=== PATIENT | female | born 1960 | race Caucasian/White ===

== ENCOUNTER 2016-06-21 18:20 | Observation (INO) | payer BC, OTHER ==
[2016-06-21] VITALS (9 sets, daily range): BP systolic 110–168; BP diastolic 61–102; PULSE 72–112; RESP 18–20; TEMP 98.6; O2SAT 96–99
[~2016-06-21 18:20] MED LIST: ALPR0.5T99 PO; HYDR-3580 PO; LEXA5TAB PO; NORV5TAB PO
[2016-06-21] MEDS ORDERED: HYDR-3535 PO (18:35)
[2016-06-21] MEDS ORDERED: ALPR.5 PO (18:35)
[2016-06-21] MEDS ORDERED: LISI10TA3 PO (18:35)
--- NOTE | 2016-06-21 18:53 | PD ---
HPI Chief Complaint: Chest Pain Time Seen by Provider: 18:50 Travel History International Travel<30 days: No Contact w/Intl Traveler<30days: No Traveled to known affect area: No History of Present Illness HPI The patient was seen and examined in the presence of the nurse. This patient has a long history of heartburn. However the last couple of days she's beginning central chest discomfort that different and worse than her usual heartburn. She saw her primary physician yesterday for this and he was going to get a referral to cardiology. However today the pain came back and she got worried and came to the ER. She is currently pain-free. Symptoms severity is moderate. Duration 2 days. No alleviating factors. She has no diagnosed cardiac history of multiple risk factors. PFSH Past Medical History Anxiety: Yes Depression: Yes Cancer: Yes (SKIN CA X1 YR AGO) Cardiovascular Problems: Yes Diabetes: No Diminished Hearing: No Endocrine: No Gastrointestinal Disorders: Yes GERD: Yes Genitourinary: No Hiatal Hernia: Yes (GERD) Hypertension: Yes Immune Disorder: No Musculoskeletal: Yes Neurologic: No Psychiatric: Yes Reproductive: Yes Respiratory: Yes Sleep Apnea: No Thyroid Disease: No Ulcer: No Tetanus Vaccination: < 5 Years Influenza Vaccination: No ?: Not Past Surgical History Abdominal Surgery: No Cardiac Surgery: No Ear Surgery: No Eye Surgery: No Genitourinary Surgery: No Gynecologic Surgery: No Hysterectomy: Yes Oral Surgery: Yes (TOOTH EXTRACTION X 25 YEARS AGO) Pacemaker: No Thoracic Surgery: No Other Surgery: Yes (SKIN CA REMOVED FROM VARIOUS AREAS) Social History Alcohol Use: Yes (OCCASSIONAL) Tobacco Use: Yes (3/4 ppd) Substance Use: No Allergies-Medications (Allergen,Severity, Reaction): Coded Allergies: No Known Allergies (Verified , 05/13/15) Reported Meds & Prescriptions Reported Meds & Active Scripts Active Reported Xanax (Alprazolam) 0.5 Mg Tab 0.5 Mg PO BID PRN Lortab (Hydrocodone-Acetaminophen) 10-325 Mg Tab 1 Tab PO Q6H PRN Lisinopril 10 Mg Tab 10 Mg PO DAILY Review of Systems General / Constitutional: No: Fever Eyes: No: Visual changes HENT: No: Headaches Cardiovascular: Positive: Chest Pain or Discomfort Respiratory: No: Shortness of Breath Gastrointestinal: No: Abdominal Pain Genitourinary: No: Dysuria Musculoskeletal: No: Pain Skin: No Rash Neurologic: No: Weakness Psychiatric: No: Depression Endocrine: No: Polydipsia Hematologic/Lymphatic: No: Easy Bruising Physical Exam Narrative GENERAL: Well-nourished, well-developed patient in no apparent distress. SKIN: Warm and dry. HEAD: Atraumatic. Normocephalic. EYES: Pupils equal and round. No scleral icterus. No injection or drainage. ENT: No nasal bleeding or discharge. Mucous membranes pink and moist. NECK: Trachea midline. No JVD. CARDIOVASCULAR: Regular rate and rhythm. No murmur appreciated. RESPIRATORY: No accessory muscle use. Clear to auscultation. Breath sounds equal bilaterally. GASTROINTESTINAL: Abdomen soft, non-tender, nondistended. Hepatic and splenic margins not palpable. MUSCULOSKELETAL: No obvious deformities. No clubbing. No cyanosis. No edema. NEUROLOGICAL: Awake and alert. No obvious cranial nerve deficits. Motor grossly within normal limits. Normal speech. PSYCHIATRIC: Appropriate mood and affect; insight and judgment normal. Data Data Last Documented VS Vital Signs Date Time Temp Pulse Resp B/P Pulse Ox O2 Delivery O2 Flow Rate FiO2 06/21/16 18:49 20 98 06/21/16 18:25 98.6 111 168/102 Orders Electrocardiogram (06/21/16 18:51) Basic Metabolic Panel (Bmp) (06/21/16 18:51) Ckmb (Isoenzyme) Profile (06/21/16 18:51) Complete Blood Count With Diff (06/21/16 18:51) Prothrombin Time / Inr (Pt) (06/21/16 18:51) Act Partial Throm Time (Ptt) (06/21/16 18:51) Troponin I (06/21/16 18:51) Chest, Single Ap (06/21/16 18:51) Ecg Monitoring (06/21/16 18:51) Iv Access Insert/Monitor (06/21/16 18:51) Oximetry (06/21/16 18:51) Aspirin (Aspirin) (06/21/16 19:00) Sodium Chloride 0.9% Flush (Ns Flush) (06/21/16 19:00) MDM Medical Decision Making Medical Screen Exam Complete: Yes Emergency Medical Condition: Yes Medical Record Reviewed: Yes Differential Diagnosis Differential diagnosis includes [place], angina, pericarditis, pleurisy, GERD, anxiety. Narrative Course I have reviewed the patient's electronic medical record I've ordered a chest pain workup. Plan would be chest pain center observation and assuming the workup is negative. Discussed with Dr. Lind who will assist with disposition after workup complete Emery Rodgers MD Jun 21, 2016 18:53
[2016-06-21] MEDS ORDERED: SODIUM CHLORIDE 0.9% FLUSH 5 ML FLUSH IVF PRN ×3 (19:00→23:00)
[2016-06-21] MEDS ORDERED: ASPIRIN 325 MG TAB PO ONE (19:00)
[2016-06-21 19:05] LABS: AUTOMATED NEUTROPHIL # 6.7 TH/MM3 (1.8-7.7); BASOPHIL # 0.1 TH/MM3 (0-0.2); BASOPHIL % 1.2 % (0.0-2.0); EOSINOPHIL # 0.2 TH/MM3 (0-0.4); EOSINOPHIL % 2.2 % (0.0-4.0); HEMATOCRIT 44.8 % (35.0-46.0); HEMO FLAGS DIFF FINAL; LYMPH % 20.9 % (9.0-44.0); MEAN CELL VOLUME 93.1 FL (80.0-100.0); MEAN CORPUSCULAR HEMOGLOBIN 32.7 PG (27.0-34.0); MEAN CORPUSCULAR HGB CONC 35.1 % (32.0-36.0); NEUT % 68.7 % (16.0-70.0); PLATELET COUNT 321 TH/MM3 (150-450); RED BLOOD COUNT 4.81 MIL/MM3 (4.00-5.30); RED CELL DISTRIBUTION WIDTH 12.4 % (11.6-17.2); WHITE BLOOD COUNT 9.7 TH/MM3 (4.0-11.0)
--- NOTE | 2016-06-21 19:10 | PD ---
Physical Exam Date Seen by Provider: Jun 21, 2016 Time Seen by Provider: 19:09 Narrative Accepted in transfer of care from Dr. Rodgers GENERAL: Well-developed well-nourished female in apparent discomfort no respiratory distress SKIN: Warm and dry. right sided posterior subscapular back/wall superficial abrasion HEAD: Normocephalic. EYES: No scleral icterus. No injection or drainage. NECK: Supple, trachea midline. No JVD or lymphadenopathy. CARDIOVASCULAR: Regular rate and rhythm without murmurs, gallops, or rubs. RESPIRATORY: Breath sounds equal bilaterally. No accessory muscle use. GASTROINTESTINAL: Abdomen soft, non-tender, nondistended. MUSCULOSKELETAL: No cyanosis, or edema. Bilateral radial and dorsalis pedis pulses 2+ to palpation BACK: Nontender without obvious deformity. No CVA tenderness. Data Data Last Documented VS Vital Signs Date Time Temp Pulse Resp B/P Pulse Ox O2 Delivery O2 Flow Rate FiO2 06/21/16 20:05 105 18 110/70 98 Room Air 06/21/16 18:25 98.6 Orders Electrocardiogram (06/21/16 18:51) Basic Metabolic Panel (Bmp) (06/21/16 18:51) Ckmb (Isoenzyme) Profile (06/21/16 18:51) Complete Blood Count With Diff (06/21/16 18:51) Prothrombin Time / Inr (Pt) (06/21/16 18:51) Act Partial Throm Time (Ptt) (06/21/16 18:51) Troponin I (06/21/16 18:51) Chest, Single Ap (06/21/16 18:51) Ecg Monitoring (06/21/16 18:51) Iv Access Insert/Monitor (06/21/16 18:51) Oximetry (06/21/16 18:51) Aspirin (Aspirin) (06/21/16 19:00) Sodium Chloride 0.9% Flush (Ns Flush) (06/21/16 19:00) Sodium Chlorid 0.9% 500 Ml Inj (Ns 500 M (06/21/16 19:15) Sodium Chlor 0.9% 1000 Ml Inj (Ns 1000 M (06/21/16 19:15) Nitroglycerin Sl (Nitrostat Sl) (06/21/16 19:15) Pantoprazole Inj (Protonix Inj) (06/21/16 19:15) Potassium Chloride (Kcl) (06/21/16 19:15) Morphine Inj (Morphine Inj) (06/21/16 19:45) Ondansetron Inj (Zofran Inj) (06/21/16 19:45) Ketorolac Inj (Toradol Inj) (06/21/16 19:45) D-Dimer (06/21/16 18:48) Ct Pulmonary Angiogram (06/21/16 ) Iohexol 350 Inj (Omnipaque 350 Inj) (06/21/16 21:17) Troponin I (06/21/16 21:32) Ckmb (Isoenzyme) Profile (06/21/16 21:32) Electrocardiogram (06/21/16 ) Labs Laboratory Tests Test 06/21/16 18:48 White Blood Count 9.7 TH/MM3 Red Blood Count 4.81 MIL/MM3 Hemoglobin 15.8 GM/DL Hematocrit 44.8 % Mean Corpuscular Volume 93.1 FL Mean Corpuscular Hemoglobin 32.7 PG Mean Corpuscular Hemoglobin 35.1 % Concent Red Cell Distribution Width 12.4 % Platelet Count 321 TH/MM3 Mean Platelet Volume 8.3 FL Neutrophils (%) (Auto) 68.7 % Lymphocytes (%) (Auto) 20.9 % Monocytes (%) (Auto) 7.0 % Eosinophils (%) (Auto) 2.2 % Basophils (%) (Auto) 1.2 % Neutrophils # (Auto) 6.7 TH/MM3 Lymphocytes # (Auto) 2.0 TH/MM3 Monocytes # (Auto) 0.7 TH/MM3 Eosinophils # (Auto) 0.2 TH/MM3 Basophils # (Auto) 0.1 TH/MM3 CBC Comment DIFF FINAL Differential Comment Prothrombin Time 10.2 SEC Prothromb Time International 0.9 RATIO Ratio Activated Partial 30.0 SEC Thromboplast Time D-Dimer Quantitative (PE/DVT) 0.56 MG/L FEU Sodium Level 137 MEQ/L Potassium Level 3.1 MEQ/L Chloride Level 93 MEQ/L Carbon Dioxide Level 30.5 MEQ/L Anion Gap 14 MEQ/L Blood Urea Nitrogen 13 MG/DL Creatinine 0.54 MG/DL Estimat Glomerular Filtration 118 ML/MIN Rate Random Glucose 67 MG/DL Calcium Level 9.4 MG/DL Total Creatine Kinase 31 U/L Troponin I LESS THAN 0.02 NG/ML [facility] Medical Record Reviewed: Yes Supervised Visit with CLARENCE: No Interpretation(s) EKG: Sinus tachycardia rate 110 QS septally in V1 V2 no acute ST elevation or injury pattern noted CK: 31, not elevated; troponin I less than 0.02, not elevated CT pulmonary angiogram: CONCLUSION: No acute disease. No pulmonary embolus is seen. Alan Dooley MD on June 21, 2016 at 22:05 Board Certified Radiologist. This report was verified electronically. CBC & BMP Diagram 06/21/16 18:48 Last Impressions Chest X-Ray 06/21/16 1851 Signed Impressions: Service Date/Time: Tuesday, June 21, 2016 19:09 - CONCLUSION: No acute disease. Alan Dooley MD Differential Diagnosis Please refer to Dr. Rodgers's dictation Narrative Course Accepted in transfer of care from Dr. Rodgers for follow-up of pending labs and patient disposition with plan to admit for observation to chest pain center; cardiac risk: female, age 55, HTN, and tobacco use @1920 p.m. patient complains of 8/10 chest pain; supple nitroglycerin ordered; patient is artery received aspirin; patient identified to have hypokalemia and oral potassium replacement administered At 7:48 PM patient identified to have not elevated cardiac enzymes of 31 CK and less than 0.02 for troponin I and chemistries are also noted to have hypokalemia 3.1 this was addressed with oral replacement of potassium but also low blood sugar of 67 patient given orange juice. Patient also reportedly had initially improvement of chest pain after one sublingual nitroglycerin 7/10 decreased to 5/10 however after subsequent nitroglycerin paste was increased again to 8/10 in intensity. Patient administered morphine sulfate 2 mg IV along with Zofran 4 mg IV and Toradol 30 mg IV. D-dimer is elevated --patient remians tachycardic and discomfort is worsened by deep inspiration--proceed with CT pulmonary angiogram Post CT VS have normalized; current pain minimal; "I feel much better" Physician Communication Physician Communication call placed to [facility] service for [employer] HHPO obs Diagnosis Primary Impression: Chest pain Additional Impression: Hypokalemia Admitting Information Admitting Physician Requests: Observation Samantha Lind MD Jun 21, 2016 19:10
[2016-06-21 19:11] LABS: CHLORIDE 93 MEQ/L (98-107); POTASSIUM 3.1 MEQ/L (3.5-5.1); SODIUM (NA) 137 MEQ/L (136-145)
[2016-06-21 19:14] LABS: ANION GAP 14 MEQ/L (5-15); BICARBONATE 30.5 MEQ/L (21.0-32.0); BLOOD UREA NITROGEN 13 MG/DL (7-18)
[2016-06-21] MEDS ORDERED: SODIUM CHLORID 0.9% 500 ML INJ 500 ML IV ONE (19:15)
[2016-06-21] MEDS ORDERED: POTASSIUM CHLORIDE 20 MEQ CONTROLLED RELEASE TAB PO ONE (19:15)
[2016-06-21] MEDS ORDERED: PANTOPRAZOLE SODIUM 40 MG VIAL IV PUSH ONE (19:15)
[2016-06-21 19:17] LABS: GLOMERULAR FILTRATION RATE 118 ML/MIN (>89); INTERNATIONAL NORMALIZED RATIO 0.9 RATIO; PROTHROMBIN TIME - PATIENT 10.2 SEC (9.8-11.6)
[2016-06-21] MEDS: NITROGLYCERIN 0.4 MG SL 25 TABS/BTL SL PRN ×3 (19:22→19:33)
[2016-06-21] MEDS: SODIUM CHLOR 0.9% 1000 ML INJ 1,000 ML IV SCH (19:22)
[2016-06-21 19:24] LABS: CREATINE KINASE 31 U/L (26-192)
[2016-06-21] MEDS ORDERED: MORPHINE SULFATE 4 MG/ML INJ IV PUSH ONE (19:45)
[2016-06-21] MEDS ORDERED: KETOROLAC TROMETHAMINE 30 MG/ML (IVP) VIAL IV PUSH ONE (19:45)
[2016-06-21] MEDS ORDERED: ONDANSETRON HCL 4 MG/2 ML VIAL IV PUSH ONE (19:45)
--- NOTE | 2016-06-21 19:58 | RADHPO ---
EXAM DATE/TIME: 06/21/2016 19:09 [facility] COMPARISON: No previous studies available for comparison. INDICATIONS : Chest pain. MEDICAL HISTORY : None. SURGICAL HISTORY : None. ENCOUNTER: Initial ACUITY: 1 day PAIN SCORE: 8/10 LOCATION: Bilateral chest FINDINGS: A single view of the chest demonstrates the lungs to be symmetrically aerated without evidence of mas s, infiltrate or effusion. The cardiomediastinal contours are unremarkable. Osseous structures are intact. CONCLUSION: No acute disease. Alan Dooley MD on June 21, 2016 at 19:56 Board Certified Radiologist. This report was verified electronically.
[2016-06-21] MEDS ORDERED: ZOFR4TAB3 SL (20:29)
[2016-06-21] MEDS ORDERED: HYDR-3533 PO (20:29)
[2016-06-21] MEDS ORDERED: IOHEXOL 350 MG/ML 10 ML VIAL (for RAD DIAG) IV ONE (21:17)
--- NOTE | 2016-06-21 22:08 | RADHPO ---
EXAM DATE/TIME: 06/21/2016 20:59 [facility] COMPARISON: No previous studies available for comparison. INDICATIONS : Substernal chest pain. IV CONTRAST: 74 cc Omnipaque 350 (iohexol) IV RADIATION DOSE: 13.58 CTDIvol (mGy) MEDICAL HISTORY : Hypertension. Gastroesophageal reflux disease. Carcinoma, squamous cell. SURGICAL HISTORY : None. ENCOUNTER: Initial ACUITY: 2 days PAIN SCALE: 7/10 LOCATION: chest TECHNIQUE: Volumetric scanning of the chest was performed using a pulmonary embolism protocol MIP images were re constructed. Using automated exposure control and adjustment of the mA and/or kV according to patien t size, radiation dose was kept as low as reasonably achievable to obtain optimal diagnostic quality images. FINDINGS: PULMONARY ARTERIES: No filling defects are seen in the pulmonary arteries through the segmental level. LUNGS: There is no consolidation or pneumothorax . No concerning pulmonary nodule is visualized. PLEURAE: There is no pleural thickening or pleural effusion. MEDIASTINUM: There is good visualization of the great vessels of the middle mediastinum. No evidence of mediastin al or hilar adenopathy/mass. MUSCULOSKELETAL: Within normal limits for patient age. MISCELLANEOUS: The visualized upper abdominal organs demonstrate no acute abnormality. CONCLUSION: No acute disease. No pulmonary embolus is seen. Alan Dooley MD on June 21, 2016 at 22:05 Board Certified Radiologist. This report was verified electronically.
[2016-06-22 00:03] VITALS: BP 116/89; PULSE 96; RESP 18; TEMP 98; O2SAT 98
[2016-06-22] MEDS ORDERED: TEMAZEPAM 7.5 MG CAP PO ONE (01:15)
[2016-06-22 04:16] VITALS: BP 138/88; PULSE 84; RESP 14; TEMP 97.8; O2SAT 95
[2016-06-22] MEDS: SODIUM CHLOR 0.9% 1000 ML INJ 1,000 ML IV SCH (05:15)
[2016-06-22] MEDS ORDERED: ALPRAZolam 0.5 MG TAB PO PRN (05:45)
[2016-06-22 07:00] VITALS: PULSE 68
--- NOTE | 2016-06-22 07:21 | HHI.HP ---
[facility] Service [facility] Primary Care Physician Ab Montgomery DO Admission Diagnosis chest pain Diagnoses: (1) Chest pain Diagnosis: Principal (2) Hypokalemia Diagnosis: Principal (3) Hypertension Diagnosis: Secondary (4) Tobacco use Chief Complaint: Chest pain Travel History International Travel<30 Days: No Contact w/Intl Traveler <30 Da: No Traveled to Known Affected Are: No History of Present Illness 55-year-old female with known history of hypertension, gastroesophageal reflux, tobacco use who presented to hospital because of chest discomfort. Patient states that she is had epigastric discomfort for the last couple months. She has been using Pepcid and baking soda/water with relief usually. However last week and progressively getting worse. She went to her primary medical doctor who did laboratory studies and EKGs. She was told by her primary medical doctor that she had some abnormal changes in her EKG. They' re trying to set up outpatient cardiology evaluation. However the patient states that the pain progressively got worse and she started developing dyspnea. She came to emergency department for evaluation. Patient states that the pain is located in the epigastric region and mid part of her chest. There is no radiation to neck, back, shoulder, arm. She states that the pain is worse whenever she takes a deep breath. It is nonpalpable. She has had nausea without vomiting. She denies any diaphoresis. Patient states that she does have chronic gastroesophageal reflux. She has had endoscopies done 2 years ago , however she never followed up. She indicates that she was notified there was nothing wrong with her stomach. At the present time patient only is increasing pain whenever she takes a deep breath. Patient was recommended observation chest pain center for further evaluation. Review of Systems Constitutional: DENIES: Diaphoretic episodes, Fatigue, Fever, Weight gain, Weight loss, Chills, Dizziness, Change in appetite, Night Sweats Eyes: DENIES: Blurred vision, Diplopia, Eye inflammation, Eye pain, Vision loss , Double Vision Ears, nose, mouth, throat: DENIES: Vertigo, Nasal discharge, Throat pain, Ear Pain, Running Nose, Sinus Pain Respiratory: DENIES: Apneas, Cough, Snoring, Wheezing, Hemoptysis, Sputum production, Shortness of breath Cardiovascular: COMPLAINS OF: Chest pain, DENIES: Palpitations, Syncope, Dyspnea on Exertion, Lower Extremity Edema, Orthopnea Gastrointestinal: COMPLAINS OF: Abdominal pain, DENIES: Black stools, Bloody stools, Constipation, Diarrhea, Nausea, Vomiting, Difficulty Swallowing, Anorexia Psychiatric: COMPLAINS OF: Anxiety Past Family Social History Past Medical History Hypertension Anxiety History of Fibroids with menorrhagia Tobacco use Gastroesophageal reflux Past Surgical History Hysterectomy Reported Medications Reported Meds & Active Scripts Active Reported Xanax (Alprazolam) 0.5 Mg Tab 0.5 Mg PO BID PRN Lortab (Hydrocodone-Acetaminophen) 10-325 Mg Tab 1 Tab PO Q6H PRN Lisinopril 10 Mg Tab 10 Mg PO DAILY Allergies: Coded Allergies: No Known Allergies (Verified , 05/13/15) Family History Reviewed and significant for mother from throat cancer. Father has MS Social History Patient smokes three-quarter pack a cigarettes a day since she was 17 years old. She drinks only meyer proximally 4 times weekly up to 45 drinks. Patient states that she has not use any drugs in over 20 years. Physical Exam Vital Signs Vital Signs Date Time Temp Pulse Resp B/P Pulse Ox O2 Delivery O2 Flow Rate FiO2 06/22/16 04:16 97.8 84 14 138/88 95 06/22/16 00:03 98.0 96 18 116/89 98 06/21/16 23:40 72 06/21/16 23:40 72 06/21/16 23:32 93 17 97 06/21/16 22:53 97 06/21/16 22:22 97 18 137/65 98 Room Air 06/21/16 21:10 98 19 117/61 97 Room Air 06/21/16 21:10 Room Air 06/21/16 20:47 18 06/21/16 20:05 105 18 110/70 98 Room Air 06/21/16 20:01 18 06/21/16 19:40 18 06/21/16 19:33 110 20 120/71 97 Room Air 06/21/16 19:28 112 20 135/75 98 Room Air 06/21/16 19:03 Room Air 06/21/16 19:00 109 18 121/87 96 Room Air 06/21/16 18:49 20 98 06/21/16 18:25 98.6 111 20 168/102 99 Physical Exam GENERAL: Well-developed, well-nourished, in no acute distress. alert and orientated HEENT: Head is normocephalic without any lesions or masses noted. Facial features are symmetric. Eyes: Pupils equal round reactive to light. Extraocular muscles are intact. Conjunctivae were clear. Oropharyngeal: Pharynx without any erythema edema. Tongue is midline without deviation. Buccal mucosa is moist without any masses or lesions NECK: Supple without any masses. Trachea midline no deviation. No JVD, no bruits are appreciated CARDIAC: Regular rhythm, regular rate. S1/S2 are heard. No murmurs gallops or rubs. No palpable tenderness over sternum LUNGS: Clear to auscultation bilaterally. No wheeze, rhonchi or rales. No use of accessory muscles on inspiration or expiration. ABDOMEN: Soft, nontender. Nondistended. Bowel sounds heard in all 4 quadrants. No organomegaly or masses. Negative rebound, negative guarding EXTREMITIES: No edema, pulses are equal bilaterally. No cyanosis or clubbing NEUROLOGY: Mood and affect appear appropriate. Cranial nerves II through XII grossly intact. Muscle strength 5/5 in upper and lower extremities bilaterally. Deep tendon reflexes are 2+ in upper and lower extremities bilaterally. Laboratory Laboratory Tests Test 06/21/16 06/21/16 06/22/16 18:48 22:00 00:45 White Blood Count 9.7 Red Blood Count 4.81 Hemoglobin 15.8 Hematocrit 44.8 Mean Corpuscular Volume 93.1 Mean Corpuscular Hemoglobin 32.7 Mean Corpuscular Hemoglobin 35.1 Concent Red Cell Distribution Width 12.4 Platelet Count 321 Mean Platelet Volume 8.3 Neutrophils (%) (Auto) 68.7 Lymphocytes (%) (Auto) 20.9 Monocytes (%) (Auto) 7.0 Eosinophils (%) (Auto) 2.2 Basophils (%) (Auto) 1.2 Neutrophils # (Auto) 6.7 Lymphocytes # (Auto) 2.0 Monocytes # (Auto) 0.7 Eosinophils # (Auto) 0.2 Basophils # (Auto) 0.1 CBC Comment DIFF FINAL Differential Comment Prothrombin Time 10.2 Prothromb Time International 0.9 Ratio Activated Partial 30.0 Thromboplast Time D-Dimer Quantitative (PE/DVT) 0.56 Sodium Level 137 Potassium Level 3.1 Chloride Level 93 Carbon Dioxide Level 30.5 Anion Gap 14 Blood Urea Nitrogen 13 Creatinine 0.54 Estimat Glomerular Filtration 118 Rate Random Glucose 67 Calcium Level 9.4 Total Creatine Kinase 31 23 24 Troponin I LESS THAN 0.02 0.02 0.02 Result Diagram: 06/21/16 1848 06/21/16 1848 Imaging Last Impressions Chest X-Ray 06/21/16 1851 Signed Impressions: Service Date/Time: Tuesday, June 21, 2016 19:09 - CONCLUSION: No acute disease. Alan Dooley MD CT Angiography 06/21/16 0000 Signed Impressions: Service Date/Time: Tuesday, June 21, 2016 20:59 - CONCLUSION: No acute disease. No pulmonary embolus is seen. Alan Dooley MD Assessment and Plan Assessment and Plan Chest pain: Patient presented with mid chest discomfort. Primary medical doctor's arranging outpatient cardiology evaluation. Patient with increased risk factors to include age, hypertension, tobacco use. Patient had been ruled out for any acute coronary event with serial cardiac enzymes which remained normal. Serial EKGs were performed which show sinus rhythm and anterior/ lateral ST-T changes which compared to previous EKGs in 2013. Anterior/septal leads appear to be without any changes. Chest x-ray and CT pulmonary mammogram did not indicate any acute abnormalities. Nuclear stress test was performed and did not indicate any ischemia, patient states that she cannot perform exercise stress test due to chronic back pain, bulging disks in her back.. Continue cardiac telemetry. Continue aspirin and nitroglycerin as needed Hypokalemia: Replaced emergency department. Continue monitor and replete as needed Hypertension: Home medications have been continued. Blood pressure stable Anxiety: Home medications have been continued DVT prevention: Low risk, early ambulation Written by Emery Chua PA-C, acting as scribe for Dr. Mejía on 06/22/16 at 1410. The documentation accurately reflects the work and decisions performed face-to- face by Dr. Mejía on 06/22/16 at 1410. Discharge disposition Discharge home in stable condition Activity: Ad codie. Diet: Healthy heart diet Medications per medication reconciliation Follow-up primary medical doctor in one week Problem Qualifiers (1) Chest pain: Qualified Code: R07.9 - Chest pain, unspecified type (2) Hypertension: Qualified Code: I15.9 - Secondary hypertension Emery Chua Jun 22, 2016 07:21
[2016-06-22 07:30] VITALS: O2SAT 96
[2016-06-22 08:00] VITALS: BP 120/75; PULSE 85; RESP 18; TEMP 97.5; O2SAT 96
[2016-06-22 08:10] LABS: POTASSIUM 3.3 MEQ/L (3.5-5.1)
[2016-06-22] MEDS ORDERED: POTASSIUM CHLORIDE 20 MEQ CONTROLLED RELEASE TAB PO ONE (08:30)
[2016-06-22] MEDS ORDERED: ACETAMINOPHEN/HYDROcodone 325 MG/10 MG TAB PO PRN (08:30)
[2016-06-22] MEDS ORDERED: SODIUM CHLORIDE 0.9% FLUSH 5 ML FLUSH IVF SCH ×2 (09:00)
[2016-06-22] MEDS ORDERED: LISINOPRIL 10 MG TAB PO SCH (09:00)
[2016-06-22] MEDS ORDERED: REGADENOSON INJ 0.4 MG/5 ML SYR IV ONE (10:03)
--- NOTE | 2016-06-22 11:19 | RADHPO ---
EXAM DATE/TIME: 06/22/2016 10:23 [facility] COMPARISON: No previous studies available for comparison. INDICATIONS : Center chest pain for 2 days. Angina. DOSE: 25.9 mCi Tc99m Myoview at stress. 8.1 mCi Tc99m Myoview at rest. 0.4 mg Lexiscan STRESS SYMPTOMS: Shortness of breath. EJECTION FRACTION: > 70% MEDICAL HISTORY : Carcinoma, basal cell. Hypertension. Current smoker. SURGICAL HISTORY : Inguinal hernia repair. Hysterectomy. Skin cancer removed. ENCOUNTER: Initial ACUITY: 2 days PAIN SCALE: 3/10 LOCATION: Midsternal chest TECHNIQUE: The patient underwent pharmacologic stress with infusion of prescribed dose. Continuous ECG tracing was monitored during stress. Gated SPECT imaging was performed after stress and conventional SPECT i maging was performed at rest. The examination was performed on a SPECT/CT scanner, both attenuation and non-corrected datasets were reviewed. FINDINGS: DISTRIBUTION: The maximum perfused segment at stress is in the anterolateral wall. PERFUSION STUDY: The pattern of perfusion at stress is within normal limits. GATED STUDY: There is intact wall motion and thickening without hypokinetic or dyskinetic segments. CONCLUSION: Negative. No stress-induced ischemia or other acute abnormality. Normal wall motion. RISK CATEGORY: Low Alan Hampton MD on June 22, 2016 at 11:17 Board Certified Radiologist. This report was verified electronically.
--- NOTE | 2016-06-22 11:41 | HHI.DCPOC ---
Discharge Care Plan Diagnosis: (1) Chest pain Goals to Promote Your Health * To prevent worsening of your condition and complications * To maintain your health at the optimal level Directions to Meet Your Goals Take your medications as prescribed Follow your dietary instruction Follow activity as directed Keep your appointments as scheduled Take your immunizations and boosters as scheduled If your symptoms worsen call your PCP, if no PCP go to Urgent Care Center or Emergency Room Smoking is Dangerous to Your Health. Avoid second hand smoke Call the 24-hour hour crisis hotline for domestic abuse at Emery Chua Jun 22, 2016 11:41
[2016-06-22 12:00] VITALS: BP 128/79; PULSE 89; RESP 19; TEMP 97.7; O2SAT 95
[2016-06-22] MEDS ORDERED: PROT40TA PO (14:18)
--- NOTE | 2016-06-22 15:18 | EKG ---
Date Performed: 06/21/2016 Time Performed: 18:26:46 PTAGE: 55 years EKG: Sinus tachycardia Generalizaed low voltage in precordial leads Diffuse nonspecific ST-T tony nge Poor initial anterior force, which may be normal varient Compared to previous tracing, ST-T coon es are more prominent Abnormal ECG PREVIOUS TRACING : 01/27/2014 21.58 DOCTOR: Moi Slaughter Interpretating Date/Time 06/22/2016 15:16:45
--- NOTE | 2016-06-22 15:19 | EKG ---
Date Performed: 06/21/2016 Time Performed: 21:45:34 PTAGE: 55 years EKG: Sinus rhythm . Diffuse nonspecific ST-T change Compared to previous tracing, HR is slower, and the initial anterio r forces have improved. Abnormal ECG PREVIOUS TRACING : 06/21/2016 18.26 DOCTOR: Moi Slaughter Interpretating Date/Time 06/22/2016 15:17:44
--- NOTE | 2016-06-22 15:21 | EKG ---
Date Performed: 06/22/2016 Time Performed: 00:40:32 PTAGE: 55 years EKG: Sinus rhythm . Poor R wave progression - probable normal variant Low QRS voltages in precordial leads Nonspecific T wave change Compared to prior tracing no significant change Borderline ECGPREVIOUS TRACING : 06/21/2016 18.26 DOCTOR: Moi Slaughter Interpretating Date/Time 06/22/2016 15:19:27
--- NOTE | 2016-06-22 16:40 | TR ---
Date Performed: 06/22/2016 Time Performed: 10:27:37 DOCTOR: Moi Slaughter DRUG LIST: CLINICAL HISTORY: CHEST PAIN REASON FOR TEST: REASON FOR ENDING: OBSERVATION: CONCLUSION: Lexiscan stress test was performed under standard four minute protocol. Radionuclid e was injected one minute prior to ending the test. No electrocardiographic abormalities were present to suggest ischemia. Nuclear imaging and interpretation are pending. COMMENTS:
== END 2016-06-22 14:44 | disposition home or self-care (01) ==
LOC: PHED 18:20 → UNDOADMOB 22:55 → PHEDA 22:55 → PH3B 23:27 → UNDODISOB 06-22 14:44
PROVIDERS: ADMIT Family Medicine; ATTEND Family Medicine
DX: R07.89 Other chest pain (principal); I10 Essential (primary) hypertension; E87.6 Hypokalemia; F41.9 Anxiety disorder, unspecified; M54.9 Dorsalgia, unspecified; G89.29 Other chronic pain; K21.9 Gastro-esophageal reflux disease without esophagitis; R94.31 Abnormal electrocardiogram [ECG] [EKG]; F17.210 Nicotine dependence, cigarettes, uncomplicated; Z85.828 Personal history of other malignant neoplasm of skin
CPT/HCPCS: 71010; 71275; 78452; 80048; 82550; 84484; 85025; 85379; 85610; 85730; 93005; 93017; 96361; 96374; 96375; 99285; A9502; C9113; G0378; J1885; J2270; J2405; J2785; J7030; J7040; Q9967

== ENCOUNTER 2016-09-20 17:58 | Emergency (ER) | payer BC ==
[~2016-09-20] VITALS: Ht 175.3 cm; Wt 74.2 kg
[~2016-09-20 17:58] MED LIST changes: +ALPR.5 PO; -ALPR0.5T99 PO; +HYDR-3535 PO; -HYDR-3580 PO; -LEXA5TAB PO; +LISI10TA3 PO; -NORV5TAB PO; +PROT40TA PO
[2016-09-20 18:02] VITALS: PULSE 95; RESP 16; TEMP 98.4; O2SAT 99
[2016-09-20] MEDS ORDERED: EPINEPHrine HCL (1:1000) 1 MG/ML VIAL IM ONE (18:15)
[2016-09-20] MEDS ORDERED: diphenhydrAMINE HCL 50 MG/ML VIAL IV PUSH ONE (18:15)
[2016-09-20] MEDS ORDERED: DEXAMETHASONE SOD PHOS 20 MG/5 ML VIAL IV PUSH ONE (18:15)
--- NOTE | 2016-09-20 18:21 | PD ---
HPI . Swollen tongue Chief Complaint: Allergic/Adverse Reaction Time Seen by Provider: 18:09 Travel History International Travel<30 days: No Contact w/Intl Traveler<30days: No Traveled to known affect area: No History of Present Illness HPI Patient presents with the acute onset of swelling on the left side of her tongue. This started about 1.5 hours prior to presentation and has grown progressively worse. She now has swelling in her left neck as well. She denies any shortness of breath or nausea. Patient takes lisinopril. PFSH Past Medical History Hx Anticoagulant Therapy: No Anxiety: Yes Depression: Yes Heart Rhythm Problems: No Cancer: Yes (SKIN CA X1 YR AGO) Cardiac Catheterization: No Cardiovascular Problems: Yes (HTN) High Cholesterol: No Congestive Heart Failure: No Diabetes: No Diminished Hearing: No Endocrine: No Gastrointestinal Disorders: Yes GERD: Yes Genitourinary: No Hiatal Hernia: Yes (GERD) Hypertension: Yes Immune Disorder: No Musculoskeletal: Yes Neurologic: No Psychiatric: Yes Reproductive: Yes Respiratory: Yes Sleep Apnea: No Thyroid Disease: No Ulcer: No ?: Not Past Surgical History Abdominal Surgery: No Cardiac Surgery: No Coronary Artery Bypass Graft: No Ear Surgery: No Eye Surgery: No Genitourinary Surgery: No Gynecologic Surgery: No Hysterectomy: Yes Oral Surgery: Yes (TOOTH EXTRACTION X 25 YEARS AGO) Pacemaker: No Thoracic Surgery: No Other Surgery: Yes (SKIN CA REMOVED FROM VARIOUS AREAS) Social History Alcohol Use: Yes (OCCASSIONAL) Tobacco Use: Yes (/ ppd) Substance Use: No Allergies-Medications (Allergen,Severity, Reaction): Coded Allergies: No Known Allergies (Verified , 09/20/16) Reported Meds & Prescriptions Reported Meds & Active Scripts Active Protonix (Pantoprazole Sodium) 40 Mg Tab 40 Mg PO DAILY Reported Xanax (Alprazolam) 0.5 Mg Tab 0.5 Mg PO BID PRN Lortab (Hydrocodone-Acetaminophen) 10-325 Mg Tab 1 Tab PO Q6H PRN Lisinopril 10 Mg Tab 10 Mg PO DAILY Review of Systems Except as stated in HPI: all other systems reviewed are Neg Respiratory: No: Shortness of Breath Gastrointestinal: No: Nausea Physical Exam Narrative GENERAL: Awake and alert. SKIN: Warm and dry. HEAD: Atraumatic. Normocephalic. EYES: Pupils equal and round. ENT: No nasal bleeding or discharge. Mucous membranes pink and moist. The left side of her tongue is markedly edematous. NECK: Trachea midline. Edema on the left side of her neck. CARDIOVASCULAR: Regular rate and rhythm. Heart sounds normal. RESPIRATORY: No accessory muscle use. Lungs clear. GASTROINTESTINAL: Abdomen soft, non-tender, nondistended. MUSCULOSKELETAL: No obvious deformities. No edema. NEUROLOGICAL: Awake and alert. No obvious cranial nerve deficits. Motor grossly within normal limits. Normal speech. PSYCHIATRIC: Appropriate mood and affect; insight and judgment normal. Data Data Last Documented VS Vital Signs Date Time Temp Pulse Resp B/P Pulse Ox O2 Delivery O2 Flow Rate FiO2 09/20/16 18:02 98.4 95 16 99 Orders Epinephrine (1:1000) Inj (Adrenalin (1:1 (09/20/16 18:15) Diphenhydramine Inj (Benadryl Inj) (09/20/16 18:15) Dexamethasone Inj (Decadron Inj) (09/20/16 18:15) Basic Metabolic Panel (Bmp) (09/20/16 18:16) [facility] Medical Decision Making Medical Screen Exam Complete: Yes Emergency Medical Condition: Yes Differential Diagnosis Differential diagnosis of angioedema includes not limited to idiopathic angioedema, medication-related angioedema Narrative Course Patient presents for acute angioedema of her left tongue. She also has swelling in the left side of her neck. Therefore, I have ordered a CT of the soft tissues of the neck. She will be treated with SQ epinephrine, IV Benadryl and IV Decadron. Her care will be turned over to the oncoming provider at 7 PM. Diagnosis Primary Impression: Angioedema Qualified Code: T78.3XXA - Angioedema, initial encounter Nory Garcia MD September 20, 2016 18:21
[2016-09-20] MEDS ORDERED: OMEP20TA PO (18:26)
[2016-09-20 18:28] VITALS: BP 153/96; PULSE 100; RESP 18; O2SAT 97
[2016-09-20 18:52] LABS: POTASSIUM 3.3 MEQ/L (3.5-5.1)
[2016-09-20] MEDS ORDERED: IOHEXOL 350 MG/ML 10 ML VIAL (for RAD DIAG) IV ONE (19:20)
--- NOTE | 2016-09-20 19:59 | RADHPO ---
EXAM DATE/TIME: 09/20/2016 19:10 [facility] COMPARISON: No previous studies available for comparison. INDICATIONS : Evaluate for abscess. Left sided tongue and neck swelling. IV CONTRAST: 66 cc Omnipaque 350 (iohexol) IV RADIATION DOSE: 12.29 CTDIvol (mGy) MEDICAL HISTORY : Hypertension. SURGICAL HISTORY : Hysterectomy. ENCOUNTER: Initial ACUITY: 4 - 6 days PAIN SCALE: 7/10 LOCATION: neck TECHNIQUE: Volumetric scanning of the neck was performed. Using automated exposure control and adjustment of th e mA and/or kV according to patient size, radiation dose was kept as low as reasonably achievable to obtain optimal diagnostic quality images. FINDINGS: Left parotid gland is edematous and larger than the right. There is some edema in the adjacent deep s oft tissues and also extending into the left parapharyngeal space. No well-defined abscess or discret e mass. I also don't see a duct stone. No lymphadenopathy. CONCLUSION: Soft tissue swelling and edema left side of the face and parapharyngeal space and I believe likely on the basis of left parotitis. Please correlate clinically. The left parapharyngeal swelling is presum ably secondary/reactive but an underlying parapharyngeal or tongue base/lingual tonsil mass is diffic ult to exclude with certainty and followup to complete resolution is recommended. No evidence of absc ess. Alan Hampton MD on September 20, 2016 at 19:50 Board Certified Radiologist. This report was verified electronically.
[2016-09-20] MEDS ORDERED: PRED50 PO (20:19)
--- NOTE | 2016-09-20 20:20 | PD ---
Physical Exam Time Seen by Provider: 20:[address] Garcia left this patient with me to check the CT scan and make a disposition. Data Data Last Documented VS Vital Signs Date Time Temp Pulse Resp B/P Pulse Ox O2 Delivery O2 Flow Rate FiO2 09/20/16 18:28 100 18 153/96 97 Room Air 09/20/16 18:02 98.4 Orders Epinephrine (1:1000) Inj (Adrenalin (1:1 (09/20/16 18:15) Diphenhydramine Inj (Benadryl Inj) (09/20/16 18:15) Dexamethasone Inj (Decadron Inj) (09/20/16 18:15) Basic Metabolic Panel (Bmp) (09/20/16 18:16) Ct Soft Tiss Neck W Iv Cont (09/20/16 18:16) Iohexol 350 Inj (Omnipaque 350 Inj) (09/20/16 19:20) Labs Laboratory Tests Test 09/20/16 18:33 Sodium Level 138 MEQ/L Potassium Level 3.3 MEQ/L Chloride Level 101 MEQ/L Carbon Dioxide Level 26.0 MEQ/L Anion Gap 11 MEQ/L Blood Urea Nitrogen 12 MG/DL Creatinine 0.40 MG/DL Estimat Glomerular Filtration 166 ML/MIN Rate Random Glucose 86 MG/DL Calcium Level 9.6 MG/DL MDM Medical Record Reviewed: Yes Supervised Visit with CLARENCE: Yes Interpretation(s) The CT scan shows soft tissue swelling and edema left side of the face and parapharyngeal space which the radiologist thought was left parotitis. Differential Diagnosis Angioedema from listening appropriate, parotitis, abscess face, Lazaro's angina unlikely Narrative Course The patient appears to have lisinopril caused angioedema. It is now 0816 and the swelling has gone down dramatically including both the parotid gland as well as tongue. Plan: The patient be put on a tapered course of prednisone. She will follow up with her primary care physician. She will discontinue the lisinopril. Diagnosis Primary Impression: Angioedema Qualified Code: T78.3XXA - Angioedema, initial encounter Additional Impression: Allergy to lisinopril Additional Instruction: As we discussed, follow-up with your primary care physician. He may wish to replace the lisinopril with another medication. The prednisone is taken one tablet twice daily for 4 days followed by one tablet once daily for 4 days. Med/Other Pt SpecificInfo: Prescription(s) given Scripts Prednisone 50 Mg Tab50 Mg PO BID #12 TAB Ref 0 Prov:Kemal Chua MD 09/20/16 Disposition: 01 DISCHARGE HOME Condition: Stable Kemal Chua MD September 20, 2016 20:20
[2016-09-20 20:33] VITALS: BP 140/80
== END 2016-09-20 20:39 | disposition home or self-care (01) ==
LOC: PHED 17:58
DX: T78.3XXA Angioneurotic edema, initial encounter (principal); T46.4X5A Adverse effect of angiotensin-converting-enzyme inhibitors, initial encounter; I10 Essential (primary) hypertension; F17.200 Nicotine dependence, unspecified, uncomplicated; Z85.828 Personal history of other malignant neoplasm of skin; Z86.79 Personal history of other diseases of the circulatory system; Z87.19 Personal history of other diseases of the digestive system; Z87.39 Personal history of other diseases of the musculoskeletal system and connective tissue; Z87.09 Personal history of other diseases of the respiratory system; Z86.59 Personal history of other mental and behavioral disorders
CPT/HCPCS: 70491; 80048; 96372; 96374; 96375; 99284; J0171; J1100; J1200; Q9967